=== PATIENT | female | born 2005 | race Caucasian/White ===

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

== ENCOUNTER 2024-08-10 21:44 | Inpatient (IN) | payer BC, SELFPAY ==
--- NOTE | 2024-08-10 21:40 | PC.NURSE ---
Patient BIB [facility] from [facility] for evaluation of self harming behavior. Patient admitted to [facility] drinking bath face cleaner and smoking weed. Patient vomited prior coming to [facility]. Per patient, she has been feeling depressed and was looking for support from [facility]. Patient admitted putting a sip of bath face cleaner in her mouth and immediately spitting it out and vomiting. Patient denies SI/HI stating it was an erratic behavior and not SI. Patient reports she didn't sleep for 3 days d/t studying at school. Patient is a student at [employer]. Patient changed into a behavioral pod attire, EKG completed by health information technician, labs drawn from [facility] and sent to lab. Patient currently resting on a stretcher bed, 1:1 sitter at bedside.
[2024-08-10 21:54] VITALS: BP 137/84; BP 140/88; PULSE 89; PULSE 95; RESP 18; TEMP 36.8; O2SAT 100; O2SAT 98; BMI 20.3
--- NOTE | 2024-08-10 22:23 | ECG_ITS ---
Test Reason : SUBSTANCE ABUSE Blood Pressure : / mmHG Vent. Rate : 072 BPM Atrial Rate : 072 BPM P-R Int : 162 ms QRS Dur : 086 ms QT Int : 370 ms P-R-T Axes : 046 091 061 degrees QTc Int : 405 ms Normal sinus rhythm with sinus arrhythmia Rightward axis Borderline ECG When compared with ECG of 21-DEC-2021 12:03, Vent. rate has decreased BY 63 BPM Non-specific change in ST segment in Anterior leads Referred By: Generic ED Physician Electronically Signed By:Stefan Modi
[2024-08-10 22:47] LABS: MANUAL DIFF FLAG NO
[2024-08-10 22:49] LABS: Basophils Percent Auto 0.5 % (0-2); Eosinophils Percent Auto 0.1 % (0-4); Hematocrit 38.3 % (37.0-47.0); Hemoglobin 13.2 g/dl (12.0-16.0); Imm Gran Abs Auto 0.02 X10*3/uL (0.00-0.03); Imm Gran Pct Auto 0.2 % (0.0-0.4); Lymphocytes Absolute Auto 2.6 X10*3/uL (1.2-4.9); Lymphocytes Percent Auto 29.6 % (20-40); Mean Corpuscular HGB Conc 34.5 g/dl (31.0-35.0); Mean Corpuscular Hemoglobin 29.9 pg (27.0-33.0); Mean Corpuscular Volume 86.8 fL (80.0-98.0); Mean Platelet Volume 10.5 fL (9.4-12.3); Monocytes Absolute Auto 0.5 X10*3/uL (0.1-1.2); Monocytes Percent Auto 5.1 % (2-11); Neutrophils Absolute Auto 5.7 x10*3/uL (2.0-8.3); Neutrophils Percent Auto 64.5 % (45-73); Platelet Count 215 X10*3/uL (160-400); Red Blood Count 4.41 X10*6/uL (4.20-5.50); Red Cell Distribution Width 12.6 % (11.0-16.0); White Blood Count 8.8 X10*3/uL (4.8-10.8)
[2024-08-10 23:10] LABS: Alanine Aminotransferase 14 U/L (0-31); Albumin Level 4.7 g/dL (3.5-5.0); Alkaline Phosphatase 52 U/L (39-117); Anion Gap 14 (12-20); Aspartate Amino Transferase 17 U/L (5-31); Bilirubin Total 3.1 mg/dL (0.0-1.0); Blood Urea Nitrogen 8 mg/dL (9-16); Calcium 9.8 mg/dL (8.4-10.2); Carbon Dioxide 23 mmol/L (22-29); Chloride 103 mmol/L (96-108); Creatinine Clr Calc Pharmacy 109.8; Estimated Glomerular Filt Rate > 60; Ethanol 22 mg/dL; Glucose Random 93 mg/dL (60-115); Potassium 2.7 mmol/L (3.3-5.1); Sodium 137 mmol/L (135-145); Total Protein 7.9 g/dL (6.5-8.0); Troponin-I High Sensitivity < 2.7 ng/L (<3.5-17.0)
--- NOTE | 2024-08-10 23:33 | ED_ITS ---
HPI - Psych General Chief Complaint: Psychiatric Symptoms Stated Complaint: CRISIS SELF HARM Time Seen by Provider: 08/10/24 23:09 Source: patient and EMS Mode of arrival: EMS Limitations: no limitations History of Present Illness ED Provider: Dr. Renee Bran HPI Narrative: Patient comes to the emergency room via ambulance complaining of worsening depression, life stressors, suicide attempt. Patient states that earlier today she tried to ingest a small amount of bathroom supervisor bottle house cleaners. Patient states that when she swallowed a very small amount, she immediately vomited. Patient denies any burning sensation in the mouth esophagus or abdomen, no abdominal pain. Patient admits to feeling very stressed. Admits to smoking weed. Denies HI Related Data Home Medications ?Medication ?Instructions ?Recorded ?Confirmed dicyclomine 20 mg tablet 20 mg PO QID PRN cramping 08/11/24 08/11/24 eszopiclone 2 mg tablet 2 mg PO BEDTIME PRN Insomnia 08/11/24 08/11/24 lamotrigine 25 mg tablet mg PO 08/11/24 loperamide 2 mg capsule 2 mg PO TID 08/11/24 08/11/24 Allergies Allergy/AdvReac Type Severity Reaction Status Date / Time shrimp Allergy Unknown Verified 08/10/24 22:17 Review of Systems 2 Review of Systems: Constitutional : No Weight loss, No Fever, No Chills, No Night Sweats, No Fatigue, No Malaise ENT/Mouth : No Hearing loss, No Ear Pain, No Nasal Congestion, No Sinus Pain, No Hoarseness, No sore throat, No Rhinorrhea, No Swallowing Difficulty Eyes: No Eye Pain, No Swelling, No Redness, No Foreign Body, No Discharge, No Vision Changes Cardiovascular : No Chest Pain, No SOB, No Dyspnea on Exertion, No Orthopnea, No Edema, No Palpitations Respiratory : No Cough, No Sputum, No Wheezing, No Smoke Exposure, No Dyspnea Gastrointestinal : No Nausea, No Vomiting, No Diarrhea, No Constipation, No abdominal Pain, No Hematochezia, No Melena Genitourinary : no irregular bleeding, No Dysuria, No Urinary Frequency, No Hematuria, No Urinary Incontinence, No Urgency, No Flank Pain, No Urinary Flow Changes, No Hesitancy Musculoskeletal : No joint pain, No Myalgias, No Joint Swelling Skin : No Skin Lesions, No rash Neuro : No Weakness, No Numbness, No Paresthesias, No Loss of Consciousness, No Dizziness, No Headache Psych : Complaining of anxiety, depression, suicide attempt, no HI Heme/Lymph: No Bruising, No Bleeding,No Lymphadenopathy Endocrine : No Polyuria, No Polydipsia, No Temperature Intolerance [facility] Past Medical History Medical History (Updated 08/11/24 @ 00:03 by Ti Da Silva) Post traumatic stress disorder (PTSD) Social History Social History Household Members: Other Household Members Other:: Roommate in dorm Housing: Other Housing Other:: Dorm Do you presently have visiting nurse or other home services: No Alcohol intake: never Patient Tobacco Use Status: Never used Tobacco Smoked in Last 30 Days: No Substance Use Type: Marijuana Advance Directives: No Advance Directives Information Provided: Yes Do you have a plan to hurt others: No Plan service: No Sexual orientation: Don't Know Physical Exam 2 Vital Signs: Vital Signs: Last Vital Signs Temp 98.3 F 08/10/24 21:54 Pulse 89 08/10/24 21:54 Resp 18 08/10/24 21:54 BP 137/84 08/10/24 21:54 Pulse Ox 98 08/10/24 21:54 O2 Del Method Room Air 08/10/24 21:54 BMI result Body Mass Index 20.3 Const: Other: Appearance: Alert. Oriented X3. No acute distress. Eyes: Pupils equal, round and reactive to light. ENT: Pharynx normal. Neck: Normal inspection. Neck supple. No lymph nodes noted. No crepitus CVS: Normal heart rate and rhythm. Pulses normal. Normal S1 and S2 Respiratory: No respiratory distress. Breath sounds normal. No Wheezing. No rales Abdomen: Soft and nontender. No rigidity. No distention. Skin: Skin warm and dry. Normal skin color. Normal skin turgor. Extremities: No lower extremity edema. No Lacerations. No Rash Neuro: Oriented X 3. No motor deficit. No sensory deficit. Moving all extremities. No slurred speech. CN 2 through 12 grossly intact Psych: calm, cooperative, normal affect Course Course Course Narrative: All of patient's labs pending -patient is on a one-to-one -patient is on a Section 12 -care team consult pending Medications Administered Discontinued Medications Generic Name Dose Route Start Last Admin Trade Name Marisa PRN Reason Stop Dose Admin Potassium Chloride 60 meq 08/10/24 23:37 08/10/24 23:50 Potassium Chloride Packet 20 Meq Packet PO 08/10/24 23:38 60 meq ONCE ONE Administration Medical Decision Making Medical Decision Making [facility] Narrative: My interpretation of labs, normal hematology, chemistry shows a potassium of 2.7, chemistry within normal limits, ETOH level 22 -venous blood gases, magnesium, acetaminophen, salicylic acid pending -patient will need a repeat potassium. Care team evaluated the patient. Patient will be going inpatient level of care. Patient on a Section 12 potassium improved to normal limits.4.0 Differential Diagnosis Differential Diagnoses: The differential diagnosis associated with the presentation includes (Anxiety, depression, PTSD, suicide ideation) Admission/Observation Consideration of admission/observation: Escalation of care including admission/observation considered (Patient is on a Section 12 waiting to be seen by the care team, patient is on a Section 12) Lab Data [facility] Lab Attestation statement: I reviewed the patient's lab results. 08/10/24 22:39 08/11/24 02:07 Labs: Lab Results 08/10/24 08/11/24 08/11/24 Range/Units 22:39 00:01 00:09 WBC 8.8 (4.8-10.8) X10*3/uL RBC 4.41 (4.20-5.50) X10*6/uL Hgb 13.2 (12.0-16.0) g/dl Hct 38.3 (37.0-47.0) % MCV 86.8 (80.0-98.0) fL MCH 29.9 (27.0-33.0) pg MCHC 34.5 (31.0-35.0) g/dl RDW 12.6 (11.0-16.0) % Plt Count 215 D (160-400) X10*3/uL MPV 10.5 (9.4-12.3) fL Immature Gran % (Auto) 0.2 (0.0-0.4) % Neut % (Auto) 64.5 (45-73) % Lymph % (Auto) 29.6 (20-40) % Pershing % (Auto) 5.1 (2-11) % Eos % (Auto) 0.1 (0-4) % Baso % (Auto) 0.5 (0-2) % Lymph # (Auto) 2.6 (1.2-4.9) X10*3/uL Pershing # (Auto) 0.5 (0.1-1.2) X10*3/uL Eos # (Auto) 0.0 (0.0-0.4) X10*3/uL Baso # (Auto) 0.0 (0.0-0.2) X10*3/uL Abs Immat Gran (auto) 0.02 (0.00-0.03) X10*3/uL Absolute Neuts (auto) 5.7 (2.0-8.3) x10*3/uL Absolute Nucleated RBC 0.000 (0.0-0.012) X10*3/uL Nucleated RBC % (auto) 0.0 (0.0-0.2) /100WBC VBG pH 7.44 H (7.32-7.43) VBG pCO2 34 mmHg VBG pO2 43 mmHg VBG HCO3 23 (22-26) mmol/L VBG O2 Saturation 69.0 % VBG Base Excess -0.1 mmol/L Sodium 137 (135-145) mmol/L Potassium 2.7 L* (3.3-5.1) mmol/L Chloride 103 (96-108) mmol/L Carbon Dioxide 23 (22-29) mmol/L Anion Gap 14 (12-20) BUN 8 L (9-16) mg/dL Creatinine 0.73 (0.5-1.4) mg/dL Estim Creat Clear Calc 109.8 Estimated GFR > 60 Random Glucose 93 (60-115) mg/dL Calcium 9.8 (8.4-10.2) mg/dL Magnesium 2.1 (1.6-2.6) mg/dL Total Bilirubin 3.1 H (0.0-1.0) mg/dL AST 17 (5-31) U/L ALT 14 (0-31) U/L Alkaline Phosphatase 52 (39-117) U/L Troponin I High Sens < 2.7 (<3.5-17.0) ng/L Total Protein 7.9 (6.5-8.0) g/dL Albumin 4.7 (3.5-5.0) g/dL Beta HCG, Quant < 2 mIU/mL Salicylates < 5.0 L (15-30) mg/dL Acetaminophen < 3 (<30) mcg/mL Ethyl Alcohol 22 mg/dL 08/11/24 Range/Units 02:07 WBC (4.8-10.8) X10*3/uL RBC (4.20-5.50) X10*6/uL Hgb (12.0-16.0) g/dl Hct (37.0-47.0) % MCV (80.0-98.0) fL MCH (27.0-33.0) pg MCHC (31.0-35.0) g/dl RDW (11.0-16.0) % Plt Count (160-400) X10*3/uL MPV (9.4-12.3) fL Immature Gran % (Auto) (0.0-0.4) % Neut % (Auto) (45-73) % Lymph % (Auto) (20-40) % Pershing % (Auto) (2-11) % Eos % (Auto) (0-4) % Baso % (Auto) (0-2) % Lymph # (Auto) (1.2-4.9) X10*3/uL Pershing # (Auto) (0.1-1.2) X10*3/uL Eos # (Auto) (0.0-0.4) X10*3/uL Baso # (Auto) (0.0-0.2) X10*3/uL Abs Immat Gran (auto) (0.00-0.03) X10*3/uL Absolute Neuts (auto) (2.0-8.3) x10*3/uL Absolute Nucleated RBC (0.0-0.012) X10*3/uL Nucleated RBC % (auto) (0.0-0.2) /100WBC VBG pH (7.32-7.43) VBG pCO2 mmHg VBG pO2 mmHg VBG HCO3 (22-26) mmol/L VBG O2 Saturation % VBG Base Excess mmol/L Sodium 140 (135-145) mmol/L Potassium 4.0 D (3.3-5.1) mmol/L Chloride 105 (96-108) mmol/L Carbon Dioxide 23 (22-29) mmol/L Anion Gap 16 (12-20) BUN 9 (9-16) mg/dL Creatinine 0.78 (0.5-1.4) mg/dL Estim Creat Clear Calc 102.8 Estimated GFR > 60 Random Glucose 105 (60-115) mg/dL Calcium 10.2 (8.4-10.2) mg/dL Magnesium (1.6-2.6) mg/dL Total Bilirubin (0.0-1.0) mg/dL AST (5-31) U/L ALT (0-31) U/L Alkaline Phosphatase (39-117) U/L Troponin I High Sens (<3.5-17.0) ng/L Total Protein (6.5-8.0) g/dL Albumin (3.5-5.0) g/dL Beta HCG, Quant mIU/mL Salicylates (15-30) mg/dL Acetaminophen (<30) mcg/mL Ethyl Alcohol mg/dL Critical Care Time Critical Care Time Critical Care Time: Yes Total Critical Care Time: 35 Attestation: I have personally provided critical care time. Time includes review of lab data, radiology results, discussion with consultants, and monitoring for potential decompensation. Intervention performed as documented. Discharge Plan Discharge Clinical Impression: Suicidal ideation, Depression Patient Disposition: Still a Patient Prescriptions: No Action loperamide 2 mg capsule 2 mg PO TID lamotrigine 25 mg tablet PO dicyclomine 20 mg tablet 20 mg PO QID PRN (Reason: cramping) eszopiclone 2 mg tablet 2 mg PO BEDTIME PRN (Reason: Insomnia) Interventions: Cecil-Suicide Risk Severity Scale Last Done: 08/11/24 00:28 Print Language: Monegasque
[2024-08-10] MEDS: Potassium Chloride Packet 20 MEQ PACKET 60 MEQ PO (23:50)
--- NOTE | 2024-08-10 23:58 | MHC.CARE ---
Pt will need a Utox prior to CARE team evaluation.
[2024-08-11 00:12] LABS: Venous Blood Gas Refer to POC result
[2024-08-11 00:15] LABS: VBG Base Excess -0.1 mmol/L; VBG HCO3 23 mmol/L (22-26); VBG pCO2 34 mmHg; VBG pH 7.44 (7.32-7.43); VBG pO2 43 mmHg
[2024-08-11 00:30] LABS: Acetaminophen LAB < 3 mcg/mL (<30); Salicylate < 5.0 mg/dL (15-30)
[2024-08-11 00:34] LABS: Magnesium 2.1 mg/dL (1.6-2.6)
[2024-08-11 00:38] LABS: HCG Quantitative < 2 mIU/mL
--- NOTE | 2024-08-11 02:09 | MHC.CARE ---
Pt was seen at [facility] and assessed but declined services. She was sent to [facility] for medical clearance. She will be assessed by the CARE team . T/W spoke with square dance caller clinician at [facility] who reports Pt was sent to [facility] for suicidal ideation with plans to cut.
--- NOTE | 2024-08-11 02:19 | PC.NURSE ---
Med rec completed. PT unsure of her lamtical dosage. Denies SI/HI and pain at this time. PT aware we need a urine sample
[2024-08-11 02:29] LABS: Anion Gap 16 (12-20); Blood Urea Nitrogen 9 mg/dL (9-16); Calcium 10.2 mg/dL (8.4-10.2); Carbon Dioxide 23 mmol/L (22-29); Chloride 105 mmol/L (96-108); Creatinine Clr Calc Pharmacy 102.8; Estimated Glomerular Filt Rate > 60; Glucose Random 105 mg/dL (60-115); Sodium 140 mmol/L (135-145)
[2024-08-11 06:36] VITALS: BP 118/75; PULSE 92; RESP 15; TEMP 36.8; O2SAT 100
--- NOTE | 2024-08-11 07:33 | PC.NURSE ---
Assumed care of patient at 0645, patient appears to be sleeping, respirations even and unlabored, no apparent distress noted at this time. pt still needs to provide urine sample. Continue plan of care for IPLOC
[2024-08-11 10:14] LABS: Appearance Urine Cloudy; Color Urine Dark Yellow; Glucose Urine UA Negative (Negative); Leukocyte Esterase Urine Moderate (2+) (Negative); Nitrite Urine Negative (Negative); PH 5.5 (5.0-9.0); Specific Gravity - Urine 1.025 (1.005-1.025); UMIC TRIGGER UACC YES; Urine Blood Negative (Negative); Urine Ketones 40 mg/dL (Negative); Urine Protein Trace mg/dL (Neg-Trace)
[2024-08-11 10:22] LABS: Amphetamine Screen Urine Not Detected (Not Detect); Barbiturates, Urine Not Detected (Not Detect); Benzodiazepines Screen Urine Not Detected (Not Detect); Buprenorphine Scr Not Detected (Not Detect); Cannabinoid Screen Urine POSITIVE (Not Detect); Cocaine Screen Urine Not Detected (Not Detect); Fentanyl, urine Not Detected (Not Detect); Methadone Screen, Urine Not Detected (Not Detect); Opiate Screen Urine Not Detected (Not Detect); Oxycodone Screen Urine Not Detected (Not Detect); Phencyclidine Screen Urine Not Detected (Not Detect)
[2024-08-11 10:23] LABS: Bacteria Urine 1+ (None Seen); RBC Urine 0-2 /HPF (0-2); UACC Culture Trigger YES; WBC Urine 21-50 /HPF (0-5)
--- NOTE | 2024-08-11 10:23 | PHA.MEDREC ---
Addendum entered by Bhumi Weeks yajaira 08/11/24 17:36: Patient confirmed to be on 1 tablet by mouth daily. Original Note: Pharmacy Consult ? Medication Reconciliation Pharmacy has REVIEWED the medication reconciliation. Med list matches claims. However RN left lamotrigine unconfirmed. Patients script says take 1 tablet in the morning daily for 2 weeks then take 2 tablets daily in the morning tried to confirm with patient if they have advanced to the 2 tablets daily but patient was asleep. Told patients watcher to call to pharmacy when patient wakes up.
--- NOTE | 2024-08-11 16:44 | PC.NURSE ---
Patient has had uneventful day, offering no complaints to this RN. Friend visiting at bedside at this time
[2024-08-11 16:56] VITALS: BP 133/85; PULSE 100; RESP 16; TEMP 36.8; O2SAT 97
[2024-08-11] MEDS: hydrOXYzine HCL 50 MG TABLET PO (18:19)
--- NOTE | 2024-08-11 18:55 | PC.NURSE ---
Assumed care of pt. Pt lying on stretcher, no acute distress at this time, calm and cooperative. Continuing safety observations per orders.
[2024-08-11] MEDS: Dicyclomine HCl 10 MG CAPSULE 20 MG PO (20:23)
[2024-08-11] MEDS: Loperamide HCl 2 MG CAPSULE PO (20:24)
[2024-08-11] MEDS: Nitrofurantoin Monohyd/M-Cryst 100 MG CAPSULE PO (20:24)
--- NOTE | 2024-08-11 20:35 | PC.NURSE ---
Pt offered and accepted night time medications, no acute distress, calm and cooperative.
[2024-08-12 06:24] VITALS: BP 133/69; PULSE 84; RESP 15; TEMP 36.6; O2SAT 99
--- NOTE | 2024-08-12 07:40 | PC.NURSE ---
Assumed care of patient at 0645, patient appears to be in no apparent distress at this time, sleeping, respirations even and unlabored. Continue plan of care for IPLOC
[2024-08-12] MEDS: Loperamide HCl 2 MG CAPSULE PO ×2 (08:20→20:16)
[2024-08-12] MEDS: Nitrofurantoin Monohyd/M-Cryst 100 MG CAPSULE PO ×2 (08:20→20:16)
[2024-08-12] MEDS: lamoTRIgine 25 MG TABLET PO (08:20)
[2024-08-12 19:19] VITALS: BP 140/88; PULSE 92; RESP 18; TEMP 36.6; O2SAT 97
--- NOTE | 2024-08-12 23:46 | PC.NURSE ---
took over care at 23:00, pt sleeping at this time.
--- NOTE | 2024-08-13 00:09 | PC.NURSE ---
pt sitting up in bed, pt requested a sandwich and ate it.
--- NOTE | 2024-08-13 00:17 | PC.NURSE ---
pt yelling after told she could not us the phone, pt redirected to room.
--- NOTE | 2024-08-13 00:43 | PC.NURSE ---
pt requesting food, sandwich, cheese stick and drink given.
[2024-08-13 01:16] VITALS: BP 130/87; PULSE 78; RESP 16; TEMP 36.5; O2SAT 100
[2024-08-13] MEDS: Nitrofurantoin Monohyd/M-Cryst 100 MG CAPSULE PO ×2 (08:49→22:21)
[2024-08-13] MEDS: Loperamide HCl 2 MG CAPSULE PO ×3 (08:49→22:21)
[2024-08-13] MEDS: lamoTRIgine 25 MG TABLET PO (08:49)
[2024-08-13 14:40] VITALS: BP 140/83; PULSE 108; RESP 16; TEMP 37.3; O2SAT 100
[2024-08-13 14:54] VITALS: BMI 19.0
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
[2024-08-13] MEDS: Magnesium Hydrox/Alum Hydrox 30 ML ORAL.SUSP PO (17:24)
--- NOTE | 2024-08-13 18:20 | PC.ADMIT ---
Barbara, who prefers to be called Maya , was admitted to from [facility] on 08/13/24 at 14:19 on a 12a for the treatment of Bipolar II. She is alert and oriented x4. She signed a CV with provider upon arrival. Contraband search was completed by staff. She denies current suicidal and homicidal thoughts and intent. She denies auditory and visual hallucinations. She was pleasant and cooperative with admission process. Maya endorses weekly use of cannabis, utox was positive for THC and BAL was 22. She is currently on macrobid for a UTI and denies symptoms. She had complaints of nausea and stomach cramping due to her IBS. 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 She denies this was a suicide attempt. On interview, her thought process was linear and she was quiet with a blunted affect. She states she would like to talk to a provider about medication changes and feels that she had time to stabilize her mood while in the ED over the weekend. She states sleep and appetite have improved over the past few days. She asked about getting a referral for ADHD testing. She signed a 3 day notice. She was placed on 15 minute safety checks.
[2024-08-13] MEDS: Flu Vacc TS2024-25(6mos up)/PF 0.5 ML SYRINGE IM (19:19)
[2024-08-13 19:20] VITALS: BP 124/83; PULSE 87; RESP 16; TEMP 36.4; O2SAT 100
[2024-08-13 22:21] VITALS: BP 132/80
[2024-08-13] MEDS: cloNIDine HCL 0.1 MG TABLET PO (22:21)
[2024-08-13] MEDS: Sertraline HCL 25 MG TABLET PO (22:22)
[2024-08-14 07:44] VITALS: BP 121/81; PULSE 86; RESP 16; TEMP 36.8; O2SAT 100
[2024-08-14 08:10] VITALS: BP 121/81
[2024-08-14] MEDS: cloNIDine HCL 0.1 MG TABLET 0.05 MG PO ×2 (08:10→16:00)
[2024-08-14] MEDS: Nitrofurantoin Monohyd/M-Cryst 100 MG CAPSULE PO ×2 (08:10→21:13)
[2024-08-14] MEDS: Milk of Magnesia 30 ML ORAL.SUSP PO (08:14)
[2024-08-14 08:39] LABS: Alanine Aminotransferase 14 U/L (0-31); Albumin Level 4.6 g/dL (3.5-5.0); Alkaline Phosphatase 56 U/L (39-117); Anion Gap 10 (12-20); Aspartate Amino Transferase 17 U/L (5-31); Bilirubin Total 1.8 mg/dL (0.0-1.0); Blood Urea Nitrogen 12 mg/dL (9-16); Calcium 9.7 mg/dL (8.4-10.2); Carbon Dioxide 27 mmol/L (22-29); Chloride 103 mmol/L (96-108); Cholesterol 146 mg/dL (<200); Creatinine Clr Calc Pharmacy 99.9; Estimated Glomerular Filt Rate > 60; Glucose Fasting 111 mg/dL (60-99); HDL Cholesterol 45 mg/dL (>40); LDL Cholesterol Calculated 94 mg/dL (<100); Potassium 3.4 mmol/L (3.3-5.1); Sodium 137 mmol/L (135-145); Total Protein 8.1 g/dL (6.5-8.0); Triglycerides 39 mg/dL (<150)
--- NOTE | 2024-08-14 09:48 | P.PNPSI_ITS ---
Subjective Subjective Date of Service: 08/14/24 Reason For Visit: Crisis Subjective Notes: Conditional Voluntary Interim History: Signed 3 day notice yesterday which is up on 08/16/24. keeping to self. Pt reports having a difficult time sleeping last night d/t anxiety. Feeling tired this morning. She believes clonidine has been helpful with decreasing anxiety. States she will try to attend groups. denies SI/HI/VH/AH. Discussed benefits of attending DBT outpatient. Medication Compliance: Yes Side effects from medications: No Review of Systems Constitutional: Reports as per HPI Eyes: Reports as per HPI Reports as per HPI Cardiovascular: Reports as per HPI Respiratory: Reports as per HPI Gastrointestinal: Reports as per HPI Musculoskeletal: Reports as per HPI Skin/Breast: Reports as per HPI Reports as per HPI Psychiatric: Reports as per HPI Endocrine: Reports as per HPI Hematologic/Lymphatic: Reports as per HPI Allergic/Immunologic: Reports as per HPI Mental Status Exam Mental Status Exam Narrative: Pt is alert and oriented; behavior is cooperative; dressed in casual attire; mood is described as depressed and anxious ; eye contact appropriate; Speech is normal rate, volume and not pressured; thought process is organized and goal directed; Thought content is on tx; otherwise pertinent to relevant topics and without any delusional content, paranoid ideations or grandiosity; denies SI/HI/VH/AH. Diagnostics Vital Signs (24Hr): Vital Signs - 24 hr 08/13/24 14:40 08/13/24 19:20 08/13/24 22:21 Temperature 99.2 F 97.6 F Pulse Rate 108 H 87 Respiratory Rate 16 16 Blood Pressure 140/83 H 124/83 132/80 Pulse Oximetry 100 100 Oxygen Delivery Method Room Air Room Air 08/14/24 07:44 08/14/24 08:10 Temperature 98.2 F Pulse Rate 86 Respiratory Rate 16 Blood Pressure 121/81 121/81 Pulse Oximetry 100 Oxygen Delivery Method Room Air BMI result Body Mass Index 19.0 Labs 08/10/24 22:39 08/14/24 08:07 Labs: Laboratory Results - last 48 hr 08/14/24 08:07 Sodium 137 Potassium 3.4 Chloride 103 Carbon Dioxide 27 Anion Gap 10 L BUN 12 Creatinine 0.75 Estim Creat Clear Calc 99.9 Estimated GFR > 60 Fasting Glucose 111 H Calcium 9.7 Total Bilirubin 1.8 H AST 17 ALT 14 Alkaline Phosphatase 56 Total Protein 8.1 H Albumin 4.6 Triglycerides 39 Cholesterol 146 LDL Cholesterol, Calc 94 HDL Cholesterol 45 Medications Medications Current Medications Acetaminophen (Acetaminophen 325 Mg Tablet) 650 mg PO Q6H PRN PRN Reason: Headache/Pain Mild Scale (1-3) Al Hydroxide/Mg Hydroxide (Magnesium Hydrox/Alum Hydrox 30 Ml Oral.Susp) 30 ml PO Q6H PRN PRN Reason: Heartburn/Nausea Last Admin: 08/13/24 17:24 Dose: 30 ml Clonidine HCl (Clonidine Hcl 0.1 Mg Tablet) 0.05 mg PO BID@0900,1500 [facility]; Protocol Last Admin: 08/14/24 08:10 Dose: 0.05 mg Clonidine HCl (Clonidine Hcl 0.1 Mg Tablet) 0.1 mg PO BEDTIME [facility]; Protocol Last Admin: 08/13/24 22:21 Dose: 0.1 mg Dicyclomine HCl (Dicyclomine Hcl 10 Mg Capsule) 20 mg PO QID PRN PRN Reason: cramping Last Admin: 08/11/24 20:23 Dose: 20 mg Hydroxyzine HCl (Hydroxyzine Hcl 25 Mg Tablet) 25 mg PO Q6H PRN PRN Reason: Anxiety Loperamide HCl (Loperamide Hcl 2 Mg Capsule) 2 mg PO TID [facility] Last Admin: 08/14/24 08:11 Dose: Not Given Magnesium Hydroxide (Milk Of Magnesia 30 Ml Oral.Susp) 30 ml PO DAILY PRN PRN Reason: Constipation Last Admin: 08/14/24 08:14 Dose: 30 ml Nicotine Polacrilex (Nicotine Polacrilex 2 Mg Gum) 4 mg BUCCAL Q2H PRN PRN Reason: Nicotine Cravings Nitrofurantoin Macrocrystals (Nitrofurantoin Monohyd/M-Cryst 100 Mg Capsule) 100 mg PO BID [facility] Stop: 08/16/24 20:59 Last Admin: 08/14/24 08:10 Dose: 100 mg Non-Formulary Medication (Eszopiclone) 2 mg PO BEDTIME PRN PRN Reason: Insomnia Olanzapine (Olanzapine 5 Mg Tablet) 5 mg PO Q4H PRN PRN Reason: agitation Sertraline HCl (Sertraline Hcl 25 Mg Tablet) 25 mg PO BEDTIME [facility] Last Admin: 08/13/24 22:22 Dose: 25 mg Trazodone HCl (Trazodone Hcl 50 Mg Tablet) 50 mg PO BEDTIME MRX1 PRN PRN Reason: Insomnia Allergies Allergies Allergy/AdvReac Type Severity Reaction Status Date / Time shrimp Allergy Unknown Verified 08/10/24 22:17 pork derived (porcine) AdvReac Unknown Verified 08/12/24 12:13 Assessment & Plan Assessment & Plan (1) MDD (major depressive disorder), recurrent episode: Status: Acute Code(s): F33.9 - Major depressive disorder, recurrent, unspecified (2) Post traumatic stress disorder (PTSD): Status: Acute Code(s): F43.10 - Post-traumatic stress disorder, unspecified (3) Borderline personality disorder: Status: Acute Code(s): F60.3 - Borderline personality disorder Plan Patient is a 19-year-old female with history of MDD, PTSD and borderline personality disorder presented to ER via ambulance from [facility] due to intentionally ingesting bathroom cleaning fluid secondary to increased life stressors. Plan: CV 15 minute safety checks Obtain collateral Start: Zoloft 25mg PO bedtime Clonidine 0.5mg PO BID@0900,1500 clonidine 1mg PO bedtime Encourage groups Provide information regarding DBT Discharge planning 08/14: Signed 3 day notice yesterday which is up on 08/16/24. keeping to self. Pt reports having a difficult time sleeping last night d/t anxiety. Feeling tired this morning. She believes clonidine has been helpful with decreasing anxiety. States she will try to attend groups. denies SI/HI/VH/AH. Discussed benefits of attending DBT outpatient. Continue current tx plan. Patient educated on: diagnosis, medication risk/benefits and therapeutic strategies Reason for continued inpatient stay Substantial Risk for: med/psych decompensation Time Spent With Patient Time: Total time managing care of this patient today _20___ minutes.
[2024-08-14 15:57] VITALS: BP 122/77; PULSE 85
[2024-08-14 20:00] VITALS: BP 120/73; PULSE 85; RESP 16; TEMP 36.8; O2SAT 99
[2024-08-14] MEDS: Sertraline HCL 25 MG TABLET PO (21:13)
[2024-08-14] MEDS: cloNIDine HCL 0.1 MG TABLET PO (21:13)
[2024-08-15] MEDS: traZODone HCL 50 MG TABLET PO ×2 (02:52→22:46)
[2024-08-15 07:31] VITALS: BP 118/70; PULSE 102; RESP 16; TEMP 36.9; O2SAT 100
[2024-08-15] MEDS: cloNIDine HCL 0.1 MG TABLET 0.05 MG PO ×2 (08:16→15:23)
[2024-08-15] MEDS: Nitrofurantoin Monohyd/M-Cryst 100 MG CAPSULE PO ×2 (08:16→20:34)
--- NOTE | 2024-08-15 08:50 | HO.PSYCHPN ---
Subjective Subjective Date of Service: 08/15/24 Reason For Visit: Crisis Subjective Notes: 3 Day Interim History: 3 day notice up on 08/16/24. Patient reports feeling good ; she reports looking forward to returning to school. denies SI; pt stated, when I'm anxious I get to this point where I think suicidal thoughts, then I come down and think logically and know I'm okay . She plans on finding a DBT group to attend and obtaining a trauma therapist. Pt stated, I've never talked about my trauma with my therapist. I want to be more trauma focused when I go to therapy . denies SI/HI/VH/AH. Plan to discharge tomorrow and return to school. Medication Compliance: Yes Side effects from medications: No Attending Groups: Intermittent Review of Systems Constitutional: Reports as per HPI Eyes: Reports as per HPI Reports as per HPI Cardiovascular: Reports as per HPI Respiratory: Reports as per HPI Gastrointestinal: Reports as per HPI Musculoskeletal: Reports as per HPI Skin/Breast: Reports as per HPI Reports as per HPI Psychiatric: Reports as per HPI Endocrine: Reports as per HPI Hematologic/Lymphatic: Reports as per HPI Allergic/Immunologic: Reports as per HPI Mental Status Exam Mental Status Exam Narrative: Pt is alert and oriented; behavior is cooperative; dressed in casual attire; mood is described as good ; eye contact appropriate; Speech is normal rate, volume and not pressured; thought process is organized and goal directed; Thought content is on tx; otherwise pertinent to relevant topics and without any delusional content, paranoid ideations or grandiosity; denies SI/HI/VH/AH. Diagnostics Vital Signs (24Hr): Vital Signs - 24 hr 08/14/24 15:57 08/14/24 20:00 08/15/24 07:31 Temperature 98.2 F 98.5 F Pulse Rate 85 85 102 H Respiratory Rate 16 16 Blood Pressure 122/77 120/73 118/70 Pulse Oximetry 99 100 Oxygen Delivery Method Room Air Room Air BMI result Body Mass Index 19.0 Labs 08/10/24 22:39 08/14/24 08:07 Labs: Laboratory Results - last 48 hr 08/14/24 08:07 Sodium 137 Potassium 3.4 Chloride 103 Carbon Dioxide 27 Anion Gap 10 L BUN 12 Creatinine 0.75 Estim Creat Clear Calc 99.9 Estimated GFR > 60 Fasting Glucose 111 H Calcium 9.7 Total Bilirubin 1.8 H AST 17 ALT 14 Alkaline Phosphatase 56 Total Protein 8.1 H Albumin 4.6 Triglycerides 39 Cholesterol 146 LDL Cholesterol, Calc 94 HDL Cholesterol 45 Medications Medications Current Medications Acetaminophen (Acetaminophen 325 Mg Tablet) 650 mg PO Q6H PRN PRN Reason: Headache/Pain Mild Scale (1-3) Al Hydroxide/Mg Hydroxide (Magnesium Hydrox/Alum Hydrox 30 Ml Oral.Susp) 30 ml PO Q6H PRN PRN Reason: Heartburn/Nausea Last Admin: 08/13/24 17:24 Dose: 30 ml Clonidine HCl (Clonidine Hcl 0.1 Mg Tablet) 0.05 mg PO BID@0900,1500 [facility]; Protocol Last Admin: 08/15/24 08:16 Dose: 0.05 mg Clonidine HCl (Clonidine Hcl 0.1 Mg Tablet) 0.1 mg PO BEDTIME [facility]; Protocol Last Admin: 08/14/24 21:13 Dose: 0.1 mg Dicyclomine HCl (Dicyclomine Hcl 10 Mg Capsule) 20 mg PO QID PRN PRN Reason: cramping Last Admin: 08/11/24 20:23 Dose: 20 mg Hydroxyzine HCl (Hydroxyzine Hcl 25 Mg Tablet) 25 mg PO Q6H PRN PRN Reason: Anxiety Loperamide HCl (Loperamide Hcl 2 Mg Capsule) 2 mg PO TID PRN PRN Reason: diarrhea Magnesium Hydroxide (Milk Of Magnesia 30 Ml Oral.Susp) 30 ml PO DAILY PRN PRN Reason: Constipation Last Admin: 08/14/24 08:14 Dose: 30 ml Nicotine Polacrilex (Nicotine Polacrilex 2 Mg Gum) 4 mg BUCCAL Q2H PRN PRN Reason: Nicotine Cravings Nitrofurantoin Macrocrystals (Nitrofurantoin Monohyd/M-Cryst 100 Mg Capsule) 100 mg PO BID [facility] Stop: 08/16/24 20:59 Last Admin: 08/15/24 08:16 Dose: 100 mg Non-Formulary Medication (Eszopiclone) 2 mg PO BEDTIME PRN PRN Reason: Insomnia Pt Own ( 1.5 ()) 1 tab PO DAILY [facility] Last Admin: 08/15/24 08:17 Dose: Not Given Olanzapine (Olanzapine 5 Mg Tablet) 5 mg PO Q4H PRN PRN Reason: agitation Sertraline HCl (Sertraline Hcl 25 Mg Tablet) 25 mg PO BEDTIME [facility] Last Admin: 08/14/24 21:13 Dose: 25 mg Trazodone HCl (Trazodone Hcl 50 Mg Tablet) 50 mg PO BEDTIME MRX1 PRN PRN Reason: Insomnia Last Admin: 08/15/24 02:52 Dose: 50 mg Allergies Allergies Allergy/AdvReac Type Severity Reaction Status Date / Time shrimp Allergy Unknown Verified 08/10/24 22:17 pork derived (porcine) AdvReac Unknown Verified 08/12/24 12:13 Assessment & Plan Assessment & Plan (1) MDD (major depressive disorder), recurrent episode: Status: Acute Code(s): F33.9 - Major depressive disorder, recurrent, unspecified (2) Post traumatic stress disorder (PTSD): Status: Acute Code(s): F43.10 - Post-traumatic stress disorder, unspecified (3) Borderline personality disorder: Status: Acute Code(s): F60.3 - Borderline personality disorder Plan Patient is a 19-year-old female with history of MDD, PTSD and borderline personality disorder presented to ER via ambulance [facility] due to intentionally ingesting bathroom cleaning fluid secondary to increased life stressors. Plan: CV 15 minute safety checks Obtain collateral Start: Zoloft 25mg PO bedtime Clonidine 0.5mg PO BID@0900,1500 clonidine 1mg PO bedtime Encourage groups Provide information regarding DBT Discharge planning 08/14: Signed 3 day notice yesterday which is up on 08/16/24. keeping to self. Pt reports having a difficult time sleeping last night d/t anxiety. Feeling tired this morning. She believes clonidine has been helpful with decreasing anxiety. States she will try to attend groups. denies SI/HI/VH/AH. Discussed benefits of attending DBT outpatient. Continue current tx plan. 08/15: 3 day notice up on 08/16/24. Patient reports feeling good ; she reports looking forward to returning to school. denies SI; pt stated, when I'm anxious I get to this point where I think suicidal thoughts, then I come down and think logically and know I'm okay . She plans on finding a DBT group to attend and obtaining a trauma therapist. Pt stated, I've never talked about my trauma with my therapist. I want to be more trauma focused when I go to therapy . denies SI/HI/VH/AH. Plan to discharge tomorrow and return to school. Patient educated on: diagnosis, medication risk/benefits and therapeutic strategies Reason for continued inpatient stay Substantial Risk for: stable for discharge Time Spent With Patient Time: Total time managing care of this patient today _20___ minutes.
[2024-08-15 15:19] VITALS: BP 130/77; PULSE 87
[2024-08-15] MEDS: Sennosides 8.6 MG TABLET 17.2 MG PO (15:27)
[2024-08-15 20:00] VITALS: BP 142/68; PULSE 92; RESP 16; TEMP 36.8; O2SAT 100
[2024-08-15] MEDS: Sertraline HCL 25 MG TABLET PO (20:34)
[2024-08-15] MEDS: cloNIDine HCL 0.1 MG TABLET PO (20:34)
[2024-08-16 07:53] VITALS: BP 118/63; PULSE 93; RESP 16; TEMP 36.4; O2SAT 100
[2024-08-16] MEDS: cloNIDine HCL 0.1 MG TABLET 0.05 MG PO (08:47)
[2024-08-16] MEDS: Acetaminophen 325 MG TABLET 650 MG PO (08:48)
[2024-08-16] MEDS: Nitrofurantoin Monohyd/M-Cryst 100 MG CAPSULE PO (08:48)
[2024-08-16] MEDS: JUNEL FE 1 EACH PO (08:49)
[2024-08-16] MEDS: Magnesium Hydrox/Alum Hydrox 30 ML ORAL.SUSP PO (09:13)
--- NOTE | 2024-08-16 09:31 | PM.PSYDC ---
DS: Providers Provider Date of Service: 08/16/24 Date of admission: 08/13/24 14:01 Date of discharge: 08/16/24 Primary care physician: Unknown Physician Admitting clinician: Victoria Aguilera Attending physician on admission: Jerzy Benson Attending physician on discharge: Jerzy Benson Discharging clinician: Victoria Aguilera DS: Diagnosis Discharge Diagnosis (1) MDD (major depressive disorder), recurrent episode: Status: Acute (2) Post traumatic stress disorder (PTSD): Status: Acute (3) Borderline personality disorder: Status: Acute DS: Medications Discharge Medications Home Medications: Home Medications ?Medication ?Instructions ?Recorded ?Confirmed dicyclomine 20 mg tablet 20 mg PO QID PRN cramping 08/11/24 08/11/24 eszopiclone 2 mg tablet 2 mg PO BEDTIME PRN Insomnia 08/11/24 08/11/24 lamotrigine 25 mg tablet 25 mg PO DAILY 08/11/24 08/11/24 loperamide 2 mg capsule 2 mg PO TID 08/11/24 08/11/24 Mental Status Exam Mental Status Exam Narrative: Pt is alert and oriented; behavior is cooperative; dressed in casual attire; mood is described as good ; eye contact appropriate; Speech is normal rate, volume and not pressured; thought process is organized and goal directed; Thought content is on tx; otherwise pertinent to relevant topics and without any delusional content, paranoid ideations or grandiosity; denies SI/HI/VH/AH. Data Data Completed and Pending Completed studies during hospitalization [Text1]: 08/10/24 08/11/24 08/11/24 22:39 00:01 00:09 WBC 8.8 RBC 4.41 Hgb 13.2 Hct 38.3 MCV 86.8 MCH 29.9 MCHC 34.5 RDW 12.6 Plt Count 215 D MPV 10.5 Immature Gran % (Auto) 0.2 Neut % (Auto) 64.5 Lymph % (Auto) 29.6 [place] % (Auto) 5.1 Eos % (Auto) 0.1 Baso % (Auto) 0.5 Lymph # (Auto) 2.6 [place] # (Auto) 0.5 Eos # (Auto) 0.0 Baso # (Auto) 0.0 Abs Immat Gran (auto) 0.02 Absolute Neuts (auto) 5.7 Absolute Nucleated RBC 0.000 Nucleated RBC % (auto) 0.0 VBG pH 7.44 H VBG pCO2 34 VBG pO2 43 VBG HCO3 23 VBG O2 Saturation 69.0 VBG Base Excess -0.1 Sodium 137 Potassium 2.7 L* Chloride 103 Carbon Dioxide 23 Anion Gap 14 BUN 8 L Creatinine 0.73 Estim Creat Clear Calc 109.8 Estimated GFR > 60 Random Glucose 93 Fasting Glucose Calcium 9.8 Magnesium 2.1 Total Bilirubin 3.1 H AST 17 ALT 14 Alkaline Phosphatase 52 Troponin I High Sens < 2.7 Total Protein 7.9 Albumin 4.7 Triglycerides Cholesterol LDL Cholesterol, Calc HDL Cholesterol Beta HCG, Quant < 2 Urine Color Urine Appearance Urine pH Ur Specific [place] Urine Protein Urine Glucose (UA) Urine Ketones Urine Blood Urine Nitrite Ur Leukocyte Esterase Urine RBC Urine WBC Ur Squamous Epith Cells Urine Bacteria Hyaline Casts Salicylates < 5.0 L Urine Opiates Screen Ur Buprenorphine Scrn Ur Oxycodone Screen Urine Methadone Screen Urine Fentanyl Screen Acetaminophen < 3 Ur Barbiturates Screen Ur Phencyclidine Scrn Ur Amphetamines Screen U Benzodiazepines Scrn Urine Cocaine Screen U Marijuana (THC) Screen Ethyl Alcohol 22 08/11/24 08/11/24 08/14/24 02:07 10:08 08:07 WBC RBC Hgb Hct MCV MCH MCHC RDW Plt Count MPV Immature Gran % (Auto) Neut % (Auto) Lymph % (Auto) [place] % (Auto) Eos % (Auto) Baso % (Auto) Lymph # (Auto) [place] # (Auto) Eos # (Auto) Baso # (Auto) Abs Immat Gran (auto) Absolute Neuts (auto) Absolute Nucleated RBC Nucleated RBC % (auto) VBG pH VBG pCO2 VBG pO2 VBG HCO3 VBG O2 Saturation VBG Base Excess Sodium 140 137 Potassium 4.0 D 3.4 Chloride 105 103 Carbon Dioxide 23 27 Anion Gap 16 10 L BUN 9 12 Creatinine 0.78 0.75 Estim Creat Clear Calc 102.8 99.9 Estimated GFR > 60 > 60 Random Glucose 105 Fasting Glucose 111 H Calcium 10.2 9.7 Magnesium Total Bilirubin 1.8 H AST 17 ALT 14 Alkaline Phosphatase 56 Troponin I High Sens Total Protein 8.1 H Albumin 4.6 Triglycerides 39 Cholesterol 146 LDL Cholesterol, Calc 94 HDL Cholesterol 45 Beta HCG, Quant Urine Color Dark Yellow Urine Appearance Cloudy Urine pH 5.5 Ur Specific [place] 1.025 Urine Protein Trace Urine Glucose (UA) Negative Urine Ketones 40 Urine Blood Negative Urine Nitrite Negative Ur Leukocyte Esterase Moderate (2+) H Urine RBC 0-2 Urine WBC 21-50 H Ur Squamous Epith Cells 6-10 Urine Bacteria 1+ Hyaline Casts 6-10 Salicylates Urine Opiates Screen Not Detected Ur Buprenorphine Scrn Not Detected Ur Oxycodone Screen Not Detected Urine Methadone Screen Not Detected Urine Fentanyl Screen Not Detected Acetaminophen Ur Barbiturates Screen Not Detected Ur Phencyclidine Scrn Not Detected Ur Amphetamines Screen Not Detected U Benzodiazepines Scrn Not Detected Urine Cocaine Screen Not Detected U Marijuana (THC) Screen POSITIVE H Ethyl Alcohol 08/11/24 Unknown Urine clean catch - Clean Catch Midstream Urine Culture - Final No growth. DS: Summary Hospital Course Hospital Course: Patient is a 19-year-old female with history of MDD, PTSD and borderline personality disorder presented to ER via ambulance from [facility] crisis due to intentionally ingesting bathroom cleaning fluid secondary to increased life stressors. Per crisis report, patient was sent to [facility] crisis after reporting to [facility] clinician that she was having suicidal thoughts with plans to cut herself. Patient's friend took away any cutting implements. Patient intentionally ingested bathroom cleaning fluid. Patient has history of suicidal ideation, gestures and attempts. She reports an attempt this past spring via intentional overdose on Prozac. Patient reports struggling with severe depression and thoughts of self-harm. Currently feeling overwhelmed with school, her relationship and depression. She reports daily cannabis use and is frequently medication noncompliant. She reports she does not like how the medications make her feel and is concerned about side effects. Patient reported ingesting the bathroom cleaner assistant was not a suicide attempt, it was a way to self-harm. She reports drinking a small amount and vomiting up right away ; patient emphasized suicide was not the goal. I could not calm down . denies HI/VH/AH. Patient reports not sleeping more than 3 hours this week due to studying for exams. Patient currently lives on [facility] and [facility] During admission assessment, patient presents calm cooperative. Alert and oriented x3. Patient reports feeling anxious and depressed; patient stated, I have been struggling managing my symptoms. I feel like I'm not on the right medication. I will start with a negative thought and spiral until I feel suicidal. I usually go to crisis and stabilize then go home . Patient reports she has been medication noncompliant due to it being difficult to be consistent with medications, therapy and school work . Patient denies SI; patient stated, it was not that I wanted to . It was more like I needed attention . Discussed possible medication options; risks/benefits reviewed; pt agreed to trial. Plan: CV 15 minute safety checks Obtain collateral Start: Zoloft 25mg PO bedtime Clonidine 0.5mg PO BID@0900,1500 clonidine 1mg PO bedtime Encourage groups Provide information regarding DBT Discharge planning Signed 3 day notice yesterday which is up on 08/16/24. keeping to self. Pt reports having a difficult time sleeping last night d/t anxiety. Feeling tired this morning. She believes clonidine has been helpful with decreasing anxiety. States she will try to attend groups. denies SI/HI/VH/AH. Discussed benefits of attending DBT outpatient. Continue current tx plan. 3 day notice up on 08/16/24. Patient reports feeling good ; she reports looking forward to returning to school. denies SI; pt stated, when I'm anxious I get to this point where I think suicidal thoughts, then I come down and think logically and know I'm okay . She plans on finding a DBT group to attend and obtaining a trauma therapist. Pt stated, I've never talked about my trauma with my therapist. I want to be more trauma focused when I go to therapy . denies SI/HI/VH/AH. Plan to discharge tomorrow and return to school. Patient reports feeling good and ready to go back to school ; she reports some anxiety about her meeting today with the school therapist regarding taking a medical leave. She plans on following up with her outpatient providers. denies SI/HI/VH/AH. Time spent discussing smoking cessation with patient: 3 to 10 minutes Status at Discharge Cognitive/behavioral status at discharge: Patient has insight and demonstrates good judgment in terms of wanting to pursue treatment. Patient has a safety plan that includes presenting to the closest ER or calling 911 if feeling unsafe. Functional status at discharge: independent ambulation Overall status at discharge: patient is back to baseline Time Spent with Patient Time attestation: Total time managing care of this patient today _20___ minutes. Time spent: Less than 30 minutes Discharge Plan Discharge Anticipated Discharge Date/Time: 11/21/24 11:30 Patient Disposition: Home, Self-Care Discharge Diagnosis: MDD, PTSD, Borderline personality d/o Referrals: Lachelle Orourke (clinician) [Other] - 08/21/24 11:00 am ( In person appointment. ) Alexia Stanford (psychiatrist) [Other] - 09/25/24 9:00 am (telehealth appointment) Physician,Unknown J [Primary Care Provider] - 1 Week Discharge Medications: New clonidine HCl 0.1 mg Tablet 0.05 mg PO BID@0900,1500 7 Days Qty: 7 3RF Protocol: Hold for SBP< HOLD for SBP < : 90 clonidine HCl 0.1 mg Tablet 0.1 mg PO BEDTIME 7 Days Qty: 7 3RF Protocol: Hold for SBP< HOLD for SBP < : 90 sertraline 25 mg Tablet 25 mg PO BEDTIME 7 Days Qty: 7 3RF Continued loperamide 2 mg capsule 2 mg PO TID dicyclomine 20 mg tablet 20 mg PO QID PRN (Reason: cramping) eszopiclone 2 mg tablet 2 mg PO BEDTIME PRN (Reason: Insomnia) Discontinued lamotrigine 25 mg tablet 25 mg PO DAILY Discharge Orders: Discharge Order (Routine); Ordered 08/16/24 Ordered By: Victoria Aguilera Diet: Regular diet Activity on Discharge: As tolerated Stand Alone Forms: Patient Portal Discharge page, Community Support Print Language: Serbian Care Plan Goals: Maintain mood and safe behaviors Take medications as prescribed Practice coping skills Continue with outpatient providers and reach out to them as needed Health Concerns: Mood stability and behaviors Plan of Treatment: Follow up with your PCP, psychiatric provider and other outpatient providers regarding above concerns Take medications as prescribed Assessment: Patient has insight and demonstrates good judgment in terms of wanting to pursue treatment. Patient has a safety plan that includes presenting to the closest ER or calling 911 if feeling unsafe. Discharge Date/Time: 08/16/24 11:22
--- OUTSIDE RECORDS SUMMARY | 2024-08-17 12:14 | XMS_ITS | Continuity of Care Document ---
Author Organization [facility] Address [address] [place] [address] Phone Support Name Relationship Address Phone Victoria [place] [address] Pcp-MD Keeley Potter Primary Care Provider Unknown Kim MD Eduard Abbasi Emergency Provider [id number] [address] Chief Complaint and Reason for Visit Chief Complaint Abdominal pain. Vomi ting Allergies, Adverse Reactions, Alerts Allergen Type Severity Reaction Last Updated Verified Status shrimp Allergy Hives October 08, 2022 11:43pm Yes Active Social History Smoking Status Unknown if ever smoked Observation Status Date of Observation Not October 09, 2022 Observation Status Observation Response Date of Response Living Situation Private Home October 09, 2 023 12:58am Additional Data Assigned Sex Female Problems Active Problems Medical Problem Onset Date Status Cyclical vomiting Active Medications Medication Status Dose Units Route Directions Qty Days St art Date End Date Instructions Metoclopramide Hcl (Reglan) 10 mg Tablet Active 10 MG PO FOUR TIMES DAILY 30 October 09, 2022 2:24am Procedures Procedure Date Performed Status XR KUB portable October 09, 2022 12:18am activ e Relevant Diagnostic Tests and/or Laboratory Data Laboratory Results Test Date/Time Result Interpretation Reference Range Result Comment Performing Site White Blood Count October 08, 2022 12:35am 7.7 x10??/mcL 4.8-10.8 [facility] [id number] [address] [facility] [address] Red Blood Count October 08, 2022 12:35am 4.86 x10 6mcL 4.70-5.40 [facility] [id number] [address] [facility] [address] Hemoglobin October 08, 2022 12:35am 14.3 gm/dL 12.0-16.[id number] [facility] [address] Hematocrit October 08, 2022 12:35am 43.0 % 37.0-47.[id number] [facility] [address] Mean Corpuscular Volume October 08, 2022 12:35am 88.5 fL 79-99 [place] [id number] [address] [facility] [address] Mean Corpuscular Hemoglobin October 08, 2022 12:35am 29.4 pg 27.0-31.0 [place] [id number] [address] [facility] [address] Mean Corpuscular Hemoglobin Concent October 08, 2022 12:35am 33.3 g/dL 32.0-36.0 [place] [id number] [address] [facility] [address] RDW Coefficient of Variation October 08, 2022 12:35am 12.1 % 11.0-16.[address] [facility] [address] Platelet Count October 08, 2022 12:35am 251 x10??/mcL 150-400 [place] [id number] [address] [facility] [address] Mean Platelet Volume October 08, 2022 12:35am 10.5 fL 9.0-13.[address] [facility] [address] Immature Granulocyte % (Auto) October 08, 2022 12:35am 0.0 % 0.0-2.[address] [facility] [address] Neutrophils (%) (Auto) October 08, 2022 12:35am 66.7 % 37.0-75.0 [place] [id number] [address] [facility] [address] Lymphocytes (%) (Auto) October 08, 2022 12:35am 28.1 % 12.0-50.0 [place] [id number] [address] [facility] [address] Monocytes (%) (Auto) October 08, 2022 12:35am 4.8 % 0.0-15.0 [place] [id number] [address] [facility] [address] Eosinophils (%) (Auto) October 08, 2022 12:35am 0.1 % 0.0-7.0 [place] [id number] [address] [facility] [address] Basophils (%) (Auto) October 08, 2022 12:35am 0.3 % >1.5 [place] [address] [facility] [address] Immature Granulocyte # (Auto) October 08, 2022 12:35am 0.00 X10 3/uL 0.00-0.09 [place] [address] [facility] [address] Neutrophils # (Auto) October 08, 2022 12:35am 5.1 x10??/mcL 2.0-7.5 [place] [id number] [address] [facility] [address] Lymphocytes # (Auto) October 08, 2022 12:35am 2.2 x10??/mcL 1.0-3.5 [place] [id number] [address] [facility] [address] Monocytes # (Auto) October 08, 2022 12:35am 0.4 x10??/mcL 0.0-0.8 [place] [id number] [address] [facility] [address] Eosinophils # (Auto) October 08, 2022 12:35am 0.0 x10??/mcL 0.0-0.7 [place] [id number] [address] [facility] [address] Basophils # (Auto) October 08, 2022 12:35am 0.0 x10??/mcL 0.0-0.1 [place] [address] [facility] [address] Urine Color October 08, 2022 12:35am Yellow Yellow [place] [id number] [address] [facility] [address] Urine Clarity October 08, 2022 12:35am Clear Clear [place] [id number] [address] [facility] [address] Urine pH October 08, 2022 12:35am 7.0 5.0-8.0 [facility] [id number] [address] [facility] [address] Urine Specific [place] October 08, 2022 12:35am 1.010 1.005-1.03 0 [facility] [id number] [address] [facility] [address] Urine Blood October 08, 2022 12:35am Negative Negative [facility] [id number] [address] [facility] [address] Urine Protein October 08, 2022 12:35am Negative mg/dl Negative [facility] [id number] [address] [facility] [address] Urine Glucose (UA) October 08, 2022 12:35am Negative mg/dL Negative [facility] [id number] [address] [facility] [address] Urine Ketones October 08, 2022 12:35am 2+ mg/dL Negative [facility] [id number] [address] [facility] [address] Urine Nitrate October 08, 2022 12:35am Negative Negative [facility] [id number] [address] [facility] [address] Urine Bilirubin October 08, 2022 12:35am Negative Negative [facility] [id number] [address] [facility] [address] Urine Urobilinogen October 08, 2022 12:35am 0.2 Normal [facility] [id number] [address] [facility] [address] Urine Leukocyte Esterase October 08, 2022 12:35am Negative Negative [facility] [id number] [address] [facility] [address] Sodium Level October 08, 2022 12:35am 138.0 mmol/L 137.0-145. 0 [facility] [id number] [address] [facility] [address] Potassium Level October 08, 2022 12:35am 4.0 mmol/L 3.4-5.0 [facility] [id number] [address] [facility] [address] Chloride Level October 08, 2022 12:35am 102.0 mmol/L 98.0-107.0 [place] [id number] [address] [facility] [address] Carbon Dioxide Level October 08, 2022 12:35am 24.0 mmol/L 22.0-30.0 [facility] [id number] [address] [facility] [address] Anion Gap October 08, 2022 12:35am 16.0 [facility] [id number] [address] [facility] [address] Blood Urea Nitrogen October 08, 2022 12:35am 10.0 mg/dL 7.0-17.0 [facility] [id number] [address] [facility] [address] Creatinine October 08, 2022 12:35am 0.60 mg/dL 0.52-1.04 [place] [id number] [address] [facility] [address] Estimated Creatinine Clearance October 08, 2022 12:35am 132 mL/min This value is calculated by Cockcroft Gault Equation using ideal body weight. This result is dependent on an accurate patient height and weight which is obtained from patients medical record. Mckayofbrad, Toby.W. and M.H. Rylan. Prediction of creatinine clearance from serum creatinine. Nephron. 1976. 16(1):31-41. [facility] [id number] [address] [facility] [address] Estimat Glomerular Filtration Rate October 08, 2022 12:35am 133 >90 Reported eGFR is based on the CKD-EPI 2020 equation that does not use a race coefficient. Additional information can be found at: 1_icb_egfr_s mar_flyer 5.pdf (kidney.org) [facility] [id number] [address] [facility] [address] BUN/Creatinine Ratio October 08, 2022 12:35am 16.66 [facility] [id number] [address] [facility] [address] Corrected Calcium October 08, 2022 12:35am 9.40 mg/dL 8.40-10.20 [facility] [id number] [address] [facility] [address] Glucose Level October 08, 2022 12:35am 94.0 mg/dL 74.0-106.0 [place] [id number] [address] [facility] [address] Calcium Level October 08, 2022 12:35am 10.2 mg/dL 8.4-10.[address] [facility] [address] Total Bilirubin October 08, 2022 12:35am 2.90 mg/dL 0.20-1.[address] [facility] [address] Aspartate Amino Transf (AST/SGOT) October 08, 2022 12:35am 29 U/L 14-36 [facility] [id number] [address] [facility] [address] Alanine Aminotransferase (ALT/SGPT) October 08, 2022 12:35am 18 U/L 9-[address] [facility] [address] Total Protein October 08, 2022 12:35am 9.40 g/dL 6.30-8.[address] [facility] [address] Albumin October 08, 2022 12:35am 5.0 g/dL 3.5-5.0 [place] [id number] [address] [facility] [address] Globulin October 08, 2022 12:35am 4.4 g/dL [address] [facility] [address] Albumin/Globulin Ratio October 08, 2022 12:35am 1.[address] [facility] [address] Alkaline Phosphatase October 08, 2022 12:35am 68 U/L 38-126 [facility] [id number] [address] [facility] [address] Diagnostic Imaging Reports Report Dictated Date/Time Dictated By Status Radiology Report October 09, 2022 9:38am Leo herbert [facility] completed [facility] [address] [place] [address] Patient Name: Barbara Meeks Medical Record#: [id number] Address: [facility] [address] City/State/Zip: [place] [address]: Eduard jaime MD Insurance: [facility] /Age/Sex: 2005/17/F Self Pay Admit/Reg Date: 10/08/[address]: Eduard Schaefer MD Location: ED.CG/ PCP: PcpMd KEELEY Lawrence Date of Service: 10/09/22 Order (s): XR KUB portable CPT Code: 06791 Report Number: [id number] Reason for Exam: abdominal epigastric pain XR KUB portable CLINICAL INDICATION: abdominal epigastric pain COMPARISON: None Findings: The abdominal gas pattern is within normal limits. There is no evidence of air- fluid levels. The renal outlines and psoas muscle shadows are obscured by the overlying bowel loops. IMPRESSION: The abdominal gas pattern is within normal limits. Dictated By: Leo Torres MD 10/09/22937 Signed By: Leo Torres MD 10/09/2241 TD/TT: 10/09/22937Tech: [id number] cc: LUGAL; PCPNO* Eduard Schaefer MD; Pcp-Md KEELEY Potter Vital Signs Vital Reading Result Reference Range Collection Date/Time Height 167.64 cm October 08, 2 023 10:55pm Weight 55.33 kg October 08, 2 023 10:55pm Body Temperature 98.3 [degF] 97.6-99.6 September 2:39am Heart Rate 90 /min 60-90 October 09, 2 023 2:39am Respiratory rate 18 /min 12-24 September 2:39am Oxygen saturation by Pulse oximetry 98 % 95-100 October 09, 2022 2:39am BP Systolic 124 mm[Hg] 90-140 October 09, 2 023 2:39am BP Diastolic 82 mm[Hg] 60-90 October 09, 2 023 2:39am BMI (Body Mass Index) 19.7 kg/m2 Sepua y 2022 10:55pm Body mass index (BMI) [Percentile] Per age and sex 24.3 % Normal or healthy weight; 5th to 85th percentile October 08, 2022 10:55pm Advance Directives Advance Directive Response Recorded Date/ Time Advance Directives No October 08, 2022 10:53pm Health Care Proxy No October 08, 2022 10:53pm Insurance Providers Guarantor Barbara Meeks Address [address] [place] [id number] Contact Info. Home Phone: Payer Policy Id Coverage Id Subscriber's Name Subscriber Id Effective Date Expiration Date [facility] [id number] Barbara Meeks [id number] Encounters Encounter Location(s) Arrival/Admit Date Discharge/Depart Date Provider(s) Departed Emergency [facility] October 08, 2022 10:51pm October 09, 2022 2:45am null Plan of Treatment Future Tests Future scheduled test information is unavailable Pending Tests Test Name Ordered Date Scheduled Date XR KUB portable October 09, 2022 12:18am Janua ry 2022 12:18am Future Visits Future appointment information is unavailable Referrals to Other Providers Reason for Referral Referral Start Date Provider Provider Contact Information Provider Address Pcp-Md MD Leo Potter MD Work Phone: [address] [place] [address] [facility] [address] Future Procedures Procedure Name Ordered Date Scheduled Date Discharge October 09, 2022 2:34am Januar y 2022 2:34am Future Medications Future medication information is unavailable Patient Instructions Patient instructions are unavailable
--- OUTSIDE RECORDS SUMMARY | 2024-08-17 12:14 | XMS_ITS | Patient Health Record ---
Author Organization [facility] Address [address] [place] [address] Care Team Providers Care Engine Monitor Name Role Phone NONE, NONE Primary Care Provider Kaya Gentile MD, [facility] Allergies No Known Allergies Reason For Referral No Information Medications Medication SIG (Take, Route, Frequency, Duration) Notes Start Date End Date Status Suprep Bowel Prep Kit 17.5-3.13-1.6 GM/177ML as directed Orally as directed for 1 11/15/2022 Not-Taking ARIPiprazole 2 MG 1 tablet Orally Once a day Active Metoclopramide HCl 10 MG 1 tablet before meals Orally Twice a day Not-Taking hydrOXYzine HCl 10 MG as directed Orally Active Famotidine 20 MG 1 tablet at bedtime as needed Orally Once a day Active Ondansetron 4 MG 1 tablet on the tong ue and allow to dissolve Orally Once a day Active Venlafaxine HCl ER 150 MG 1 tablet with food Orally Once a day Not-Taking Social History Tobacco Use: Social History Observation Description Date Details (start date - stop date) Never Smoker NA - NA Smoking:: Question Answer Notes Patient is a: nonsmoker Tobacco use other than smoking: Question Answer Notes Are you an other tobacco user? No Problems Problem Type SNOMED Code ICD Code Onset Dates Problem Status W/U Status Risk Notes Problem Hemorrhage of rectum and anus (149694942) Hemorrhage of anus and rectum (K62.5) Active confirmed Problem Left upper quadrant pain (503320365) Left upper quadrant pain (R10.12) Active confirmed Problem Nausea and vomiting (75933919) Nausea with vomiting, unspecified (R11.2) Active confirmed Problem Early satiety (646658455) Early satiety (R68.81) Active confirmed Problem Irritable bowel syndrome with diarrhea (155040445) Irritable bowel syndrome with diarrhea (K58.0) Active confirmed Problem Chronic idiopathic constipation (74808831) Chronic idiopathic constipation (K59.04) Active confirmed Plan Of Treatment Pending Test Test Name Order Date UPPER ENDOSCOPY (EGD) 11/15/2022 COLONOSCOPY 11/15/2022 Insurance Providers Payer Name Payer Address Payer Phone Subscriber Number Group Number Insured Name Patient Relationship to Insured Coverage Start Date Coverage End Date [employer] [address] [place], [place] [phone] [id number] Barbara Meeks Self - patient is the insured Medical (General) History Medical History History ICD Code depression Anxiety disorder
== END 2024-08-16 11:22 | disposition home or self-care (01) | DRG 751 ==
LOC: HO.ED 08-13 07:03 → HO.PADLT16 08-13 14:02
PROVIDERS: Emergency Medicine; Admitting Provider Registered Nurse; Emergency Provider Emergency Medicine Emergency Medical Services; Responsible Provider Registered Nurse; Visit Provider Psychiatry & Neurology Psychiatry
DX: F33.9 Major depressive disorder, recurrent, unspecified (principal); R45.851 Suicidal ideations; F43.10 Post-traumatic stress disorder, unspecified; Z23 Encounter for immunization; F60.3 Borderline personality disorder; Z79.899 Other long term (current) drug therapy
CPT/HCPCS: 36415; 80048; 80053; 80061; 80143; 80179; 80307; 81001; 82803; 83735; 84484; 84702; 85025; 87086; 90656; 93005; 99285; S9485

== ENCOUNTER → 2024-08-10 22:23 | Outpatient (BNV) | payer BC, SELFPAY | PROVIDERS: Emergency Provider Emergency Medicine; Visit Provider Internal Medicine Cardiovascular Disease | DX: R94.31 Abnormal electrocardiogram [ECG] [EKG] (principal); I49.8 Other specified cardiac arrhythmias | CPT/HCPCS: 93010 ==

== ENCOUNTER → 2024-08-13 14:01 | Outpatient (BNV) | payer BC, SELFPAY | PROVIDERS: Admitting Provider Registered Nurse; Emergency Provider Emergency Medicine Emergency Medical Services; Responsible Provider Registered Nurse; Visit Provider Registered Nurse | DX: F60.3 Borderline personality disorder (principal); F33.2 Major depressive disorder, recurrent severe without psychotic features; F43.11 Post-traumatic stress disorder, acute | CPT/HCPCS: 90792; 99231; 99232; 99238 ==